=== PATIENT | female | born 1960 | race Caucasian/White ===

== ENCOUNTER 2018-09-21 06:19 | Inpatient (IN) | payer SELFPAY ==
[~2018-09-21] VITALS: Ht 162.6 cm; Wt 63.9 kg
[2018-09-21] MEDS ORDERED: ALBUTEROL SULF 2.5 MG/0.5ML(0.5%) NEB SOLN HHN ONE (08:15)
[2018-09-21] MEDS ORDERED: methylPREDNISolone SOD SUCC 125 MG/2 ML VL IV ONE (08:15)
[2018-09-21] MEDS ORDERED: IPRATROPIUM BROM 0.5 MG/2.5ML INH SOL HHN ONE (08:15)
[2018-09-21] MEDS ORDERED: SODIUM CHLORIDE 0.9% 1,000 ML IV ONE (08:15)
[2018-09-21 08:41] LABS: Basophils # (auto) 0 uL; Basophils % (auto) 0.5 % (0.0-2.0); Eosinophils # (auto) 0.1 uL; Eosinophils % (auto) 2.4 % (0.0-7.0); Hematocrit 42.1 % (36.0-46.0); Hemoglobin 14.6 g/dL (12.2-16.2); Lymphocytes # (auto) 0.7 uL; Lymphocytes % (auto) 11.8 % (10.0-50.0); Mean Corpuscular Hemoglobin 32.1 pg (28.0-32.0); Mean Corpuscular Hgb Conc. 34.6 g/dL (32.0-36.0); Mean Corpuscular Volume 92.8 fL (80.0-100.0); Monocytes # (auto) 0.8 uL; Neutrophils # (auto) 4.3 uL; Neutrophils % (auto) 72.3 % (37.0-80.0); Nucleated Red Blood Cells % 0.1 %; Platelet Count (auto) 227 10^3/uL (140-450); Red Blood Cells 4.54 10^6/uL (4.0-5.20); Red Cell Distribution Width 13.1 % (11.8-14.3); White Blood Cell 5.9 10^3/uL (4.4-10.8)
[2018-09-21 08:58] LABS: Alanine Aminotransferase 24 U/L (13-56); Albumin 3.5 g/dL (3.4-5.0); Anion Gap 10 (5-15); Aspartate Aminotransferase 25 U/L (15-37); BUN/Creatinine Ratio 10.7; Blood Urea Nitrogen 6 mg/dL (7-18); Calcium 8.5 mg/dL (8.5-10.1); Carbon Dioxide 24 mmol/L (21-32); Chloride 106 mmol/L (98-107); GFR African American 142 mL/min; GFR Non-African American 118 mL/min; Glucose 86 mg/dL (74-106); Potassium 4.2 mmol/L (3.5-5.1); Sodium 140 mmol/L (136-145)
[2018-09-21 09:02] LABS: INR 0.94 (0.9-1.15); Partial Thromboplastin Time 27.1 sec (23.64-32.05)
[2018-09-21 09:03] LABS: Alkaline Phosphatase 97 U/L (45-117); Bilirubin, Total 0.8 mg/dL (0.2-1.0); Total Protein 6.9 g/dL (6.4-8.2)
[2018-09-21] MEDS ORDERED: MORPHINE SULF INJ 2 MG/ML SYRINGE 1ML IV PRN ×2 (11:00)
[2018-09-21] MEDS ORDERED: HYDROcodone-ACET 5/325MG TAB PO PRN (11:00)
[2018-09-21] MEDS ORDERED: ACETAMINOPHEN 500 MG TAB PO PRN (11:00)
[2018-09-21] MEDS ORDERED: ONDANSETRON HCL 4 MG/2 ML VIAL IV PRN (11:00)
[2018-09-21] MEDS ORDERED: NITROGLYCERIN 0.4 MG SL TAB SL PRN (11:00)
[2018-09-21] MEDS: cefTRIAXone 1GM/50ML D5W 50 ML IV SCH (11:25)
[2018-09-21] MEDS: AZITHROMYCIN 500MG/ 250ML 250 ML IV SCH (12:05)
[2018-09-21 13:13] VITALS: BP 124/72
--- NOTE | 2018-09-21 13:13 | NUR ---
Telemetry admit from ER NICOLE BLANK admitted to Telemetry unit after SBAR received. Patient oriented to Alicia Gallo, primary RN, unit, room, bed, and unit policies regarding patient care and visiting hours. Patient now on continuous telemetry monitoring, tele box #30 telemetry reading on arrival to unit is 73 sinus rhythm. Patient is awake and alert. No S/S of distress/SOB, no pain noted or reported. Respirations are even and unlabored on RA. Updated on POC and instructed to call for assistance as needed, patient verbalized understanding. Bed locked in lowest position, side rails up x2, call light within reach. Will continue to monitor for changes Q1hr and PRN.
[2018-09-21 14:00] VITALS: BP 124/72
--- NOTE | 2018-09-21 14:00 | NUR ---
IV removal and Insertion Right hand IV DC'd with clean sterile technique, catheter fully intact. Pressure dressing applied to site. Patient tolerated well. IV insertion IV access obtained, via clean sterile technique by inserting 22 gauge catheter at left hand after 1 attempt. IV secured properly. No trauma to site. Patient tolerated well.
[2018-09-21] MEDS: ALBUTEROL SULF 2.5 MG/0.5ML(0.5%) NEB SOLN NEB SCH ×3 (14:15→22:14)
[2018-09-21] MEDS: IPRATROPIUM BROM 0.5 MG/2.5ML INH SOL NEB SCH ×3 (14:15→22:14)
[2018-09-21 15:00] VITALS: BP 124/72
[2018-09-21 16:00] VITALS: BP 141/75
--- NOTE | 2018-09-21 19:13 | NUR ---
CARE ENDORSED TO [employer]MENT OPERATOR RNLUIS ENRIQUE.
--- NOTE | 2018-09-21 19:25 | NUR ---
RECEIVED PATIENT LYING IN BED, AWAKE, ALERT, ORIENTED X4. NO S/S OF RESPIRATORY DISTRESS, DENIES SOB AND CHEST PAIN. ORIENTED ON PLAN OF CARE. BED IS LOCKED AND IN LOWEST LEVEL, SIDE RAILS UP X2, CALL LIGHT WITHIN REACH. WILL CONTINUE TO MONITOR
--- NOTE | 2018-09-21 21:13 | NUR ---
RAPID INFLUENZA A AND B SAMPLE SENT TO LAB
[2018-09-21 22:00] VITALS: BP 116/56
[2018-09-21] MEDS: BUDESONIDE (INHALATION) 0.5 MG/2 ML NEB NEB SCH (22:14)
[2018-09-22 04:00] VITALS: BP 132/60
[2018-09-22 05:00] VITALS: BP 132/60
[2018-09-22] MEDS: ALBUTEROL SULF 2.5 MG/0.5ML(0.5%) NEB SOLN NEB SCH ×5 (06:08→21:47)
[2018-09-22] MEDS: IPRATROPIUM BROM 0.5 MG/2.5ML INH SOL NEB SCH ×5 (06:08→21:47)
[2018-09-22] MEDS: BUDESONIDE (INHALATION) 0.5 MG/2 ML NEB NEB SCH ×2 (06:08→19:12)
[2018-09-22 06:43] LABS: Basophils # (auto) 0 uL; Basophils % (auto) 0.2 % (0.0-2.0); Eosinophils # (auto) 0 uL; Eosinophils % (auto) 0.2 % (0.0-7.0); Hematocrit 38.9 % (36.0-46.0); Hemoglobin 13.3 g/dL (12.2-16.2); Lymphocytes # (auto) 1.3 uL; Lymphocytes % (auto) 10.6 % (10.0-50.0); Mean Corpuscular Hemoglobin 31.8 pg (28.0-32.0); Mean Corpuscular Hgb Conc. 34.2 g/dL (32.0-36.0); Mean Corpuscular Volume 93.2 fL (80.0-100.0); Monocytes % (auto) 8.1 % (0.0-12.0); Neutrophils # (auto) 10.2 uL; Neutrophils % (auto) 80.9 % (37.0-80.0); Nucleated Red Blood Cells % 0.1 %; Platelet Count (auto) 234 10^3/uL (140-450); Red Blood Cells 4.17 10^6/uL (4.0-5.20); Red Cell Distribution Width 12.8 % (11.8-14.3); White Blood Cell 12.7 10^3/uL (4.4-10.8)
[2018-09-22 07:03] LABS: Potassium 4.2 mmol/L (3.5-5.1)
[2018-09-22 07:06] LABS: BUN/Creatinine Ratio 15.7
--- NOTE | 2018-09-22 07:25 | NUR ---
Opening Shift Note Assumed care of patient, awake and alert, sitting up in bed. No S/S of distress/SOB, no pain noted or reported at this time. Respirations are even and unlabored on RA. Updated on POC and instructed to call for assistance as needed, pt. verbalized understanding. Bed locked in lowest position, side rails up x 2, call light within reach. Will continue to monitor for changes Q1hr and PRN.
--- NOTE | 2018-09-22 07:26 | NUR ---
CARE ENDORSED TO AM SHIFT RN
[2018-09-22 08:15] VITALS: BP 139/91
[2018-09-22] MEDS: cefTRIAXone 1GM/50ML D5W 50 ML IV SCH (09:39)
[2018-09-22] MEDS: FAMOTIDINE 20 MG TAB PO SCH (10:00)
[2018-09-22] MEDS: AZITHROMYCIN 500MG/ 250ML 250 ML IV SCH (10:29)
[2018-09-22 11:52] VITALS: BP 137/60
[2018-09-22] MEDS ORDERED: methylPREDNISolone SOD SUCC 125 MG/2 ML VL IV ONE (13:00)
[2018-09-22] MEDS ORDERED: NICOTINE 21MG/24 HR TOPICAL PATCH TD ONE (13:00)
[2018-09-22] MEDS ORDERED: TEMAZEPAM 15 MG CAP PO PRN (13:00)
[2018-09-22] MEDS: methylPREDNISolone SOD SUCC 40 MG/ML VL IV SCH ×2 (15:42→22:11)
[2018-09-22 16:29] VITALS: BP 148/78
--- NOTE | 2018-09-22 19:25 | NUR ---
Opening Shift Note Assumed care of patient, awake and alert. No S/S of distress/SOB or pain. Instructed on POC and to call for assist PRN, will continue to monitor for changes Q1hr and PRN.
[2018-09-22 21:30] VITALS: BP 130/70
[2018-09-23 04:53] VITALS: BP 143/96
[2018-09-23] MEDS: methylPREDNISolone SOD SUCC 40 MG/ML VL IV SCH ×2 (06:06→21:46)
[2018-09-23] MEDS: ALBUTEROL SULF 2.5 MG/0.5ML(0.5%) NEB SOLN NEB SCH ×6 (06:24→22:12)
[2018-09-23] MEDS: IPRATROPIUM BROM 0.5 MG/2.5ML INH SOL NEB SCH ×6 (06:24→22:12)
--- NOTE | 2018-09-23 06:43 | NUR ---
ROUNDS PATIENT AWAKE AND ALERT, VERBALIZES GETTING GOOD REST AND DENIES ANY PAIN OR SOB AT THIS MOMENT. SMOKING CESSATION REINFORCED. CALL LIGHT WITHIN REACH.
--- NOTE | 2018-09-23 07:33 | NUR ---
PATIENT ROUNDS PATIENT LYING IN BED, NO DISTRESS NOTED, BED IN LOWEST POSITION, SIDE RAILS UP X2 CALL LIGHT WITHIN REACH. ALL QUESTIONS AND CONCERNS ADDRESSED. WILL CONTINUE TO MONITOR AND INITIATE PLAN OF CARE.
[2018-09-23 08:00] VITALS: BP 154/105
[2018-09-23 09:00] VITALS: BP 180/98
[2018-09-23] MEDS: FAMOTIDINE 20 MG TAB PO SCH (10:00)
[2018-09-23] MEDS ORDERED: AZITHROMYCIN 250 MG TAB PO SCH (10:00)
[2018-09-23] MEDS: cefTRIAXone 1GM/50ML D5W 50 ML IV SCH (10:08)
[2018-09-23] MEDS: BUDESONIDE (INHALATION) 0.5 MG/2 ML NEB NEB SCH ×2 (10:08→22:12)
[2018-09-23] MEDS: NICOTINE 21MG/24 HR TOPICAL PATCH TD SCH (10:09)
[2018-09-23 13:00] VITALS: BP 151/90
--- NOTE | 2018-09-23 15:00 | NUR ---
IV DRESSING CHANGED
[2018-09-23 16:44] VITALS: BP 168/111
--- NOTE | 2018-09-23 16:47 | NUR ---
BP PAGED DR DOVER REGARDING BP. WAITING FOR CALL BACK, IF NO CALL BACK AFTER 5PM I WILL PAGE [facility].
--- NOTE | 2018-09-23 18:05 | NUR ---
MD PAGED SKIVER COUNTER MD REGARDING BP. NO CALL BACK AT THIS TIME, WILL CONTINUE TO MONITOR.
[2018-09-23] MEDS ORDERED: hydrALAZINE HCL 20 MG/ML VL IV PRN (18:45)
--- NOTE | 2018-09-23 18:47 | NUR ---
RECEIVED CALL FROM DR KEVIN, NEW ORDER RECEIVED AND VERIFIED BY DR KEVIN. WILL REASSESS BP AND MEDICATE ONCE MEDICATION IS AVAILABLE.
--- NOTE | 2018-09-23 19:00 | NUR ---
OPENING NOTE Received report from day shift RN. Patient is A&O X's 4 with no s/s of distress noted. Patient reports no pain. Educated patient on POC and to use call light when in need of assistance. Patient verbalized understanding. Bed is in lowest/locked position with side rails up X's 2 and call light is within reach of patient. Will continue to monitor for changes and round hourly/PRN.
--- NOTE | 2018-09-23 19:01 | NUR ---
Respiratory note: at bedside for med tim dominguez.
[2018-09-23 21:29] VITALS: BP 163/79
--- NOTE | 2018-09-23 22:12 | NUR ---
Respiratory note: AT BEDSIDE FOR MED NEB TX, PT LAYING DOWN, WOKE UP PT FOR TX, PT REFUSING AT THIS TIME. PT STATES SHE DOES NOT WANT TO TAKE ONE RIGHT NOW, SHE WANTS TO SLEEP, BUT WILL CALL ME LATER ON IF SHE NEEDS ONE. BS ARE FINE COURSE, EXPLAINED BENEFITS OF TX, PT STILL REFUSED. POX 95% ON 2LPM , HR 65, RR 18. WILL CONTINUE TO MONITOR NEEDED, RT NAME AND PAGER ASSIGNMENT WRITTEN ON PTS ROOM BOARD, PT AWARE I CAN BE PAGED AT ANY TIME. Addendum: 09/23/18 at 2240 by Darlene Long RT PT ON RA, NOT ON 2LPM. POX 95% ON RA.
[2018-09-24 05:00] VITALS: BP 149/90
[2018-09-24] MEDS: IPRATROPIUM BROM 0.5 MG/2.5ML INH SOL NEB SCH ×3 (07:45→14:14)
--- NOTE | 2018-09-24 07:45 | NUR ---
PT REFUSED TX AT THIS TIME. NO SIGNS OF RESPIRATORY DISTRESS. LUNG SOUNDS CLEAR T/O. ON RA SPO2 96 HR 72 RR 14. PT AWARE THAT I WILL RETURN FOR NEXT SCHEDULED TX. WILL CONTINUE TO MONITOR.
[2018-09-24] MEDS: ALBUTEROL SULF 2.5 MG/0.5ML(0.5%) NEB SOLN NEB SCH ×3 (07:46→14:14)
[2018-09-24 09:00] VITALS: BP 171/96
--- NOTE | 2018-09-24 09:00 | NUR ---
Patient ambulating in room uncomplaining.
[2018-09-24] MEDS: methylPREDNISolone SOD SUCC 40 MG/ML VL IV SCH (09:48)
[2018-09-24] MEDS: FAMOTIDINE 20 MG TAB PO SCH (09:48)
[2018-09-24] MEDS: cefTRIAXone 1GM/50ML D5W 50 ML IV SCH (09:48)
[2018-09-24] MEDS: NICOTINE 21MG/24 HR TOPICAL PATCH TD SCH (09:49)
[2018-09-24] MEDS: BUDESONIDE (INHALATION) 0.5 MG/2 ML NEB NEB SCH (11:30)
[2018-09-24 13:34] VITALS: BP 171/96
--- NOTE | 2018-09-24 14:45 | NUR ---
IV removed, patient requesting to shower before she goes home.
[2018-09-24 15:53] VITALS: BP 149/92
--- NOTE | 2018-09-24 16:30 | NUR ---
PCP Patient does not have local PCP, but she will be instate for at least another 30 days. She states that she will try to locate a PCP and in the mean time she will follow up with Urgent Care or ED as needed.
--- NOTE | 2018-09-24 16:55 | NUR ---
Discharge instructions given as ordered. Encourage to follow up with MD as instructed. All questions and concerns addressed. Patient verbalized understanding. Medication reconciliation form completed and copy given to patient. IV previously removed with catheter intact and pressure dressing applied. Patient taken to vehicle via wheelchair with all personal belongings, accompanied by staff. No distress noted at time of departure.
== END 2018-09-24 16:55 | disposition home or self-care (01) | DRG 193 ==
LOC: ER 06:19 → TELE 06:20 → TELE-WESTW 13:05 → WEST WING 09-22 13:34
PROVIDERS: ADMIT Nurse Practitioner Acute Care; ATTEND Internal Medicine
DX: J18.9 Pneumonia, unspecified organism (principal); J96.00 Acute respiratory failure, unspecified whether with hypoxia or hypercapnia; J44.1 Chronic obstructive pulmonary disease with (acute) exacerbation; J44.0 Chronic obstructive pulmonary disease with (acute) lower respiratory infection; F17.210 Nicotine dependence, cigarettes, uncomplicated; I70.0 Atherosclerosis of aorta; J20.9 Acute bronchitis, unspecified; Z98.51 Tubal ligation status; Z93.0 Tracheostomy status; Z72.89 Other problems related to lifestyle; Z83.3 Family history of diabetes mellitus
CPT/HCPCS: 36415; 71045; 80048; 80053; 83880; 84484; 85025; 85379; 85610; 85730; 87070; 87205; 87804; 93005; 94640; 94644; 94761; 96365; 96366; 96368; 96375; G0378; J0696